=== PATIENT | male | born 1965 | race Caucasian/White ===

== ENCOUNTER 2019-05-24 06:46 | Day surgery (SDC) | payer BC ==
[2019-05-24] MEDS ORDERED: SUCCINYLCHOLINE CHLORIDE 20 MG/ML SOL IV ONE (06:57)
[2019-05-24] MEDS ORDERED: ROCURONIUM BROMIDE 10 MG/ML SOL IV ONE (06:57)
[2019-05-24] MEDS ORDERED: FENTANYL 100MCG/2ML SOL ONE ×3 (06:59→08:22)
[2019-05-24] MEDS ORDERED: PROPOFOL 10 MG/ML 200 MG/20 ML EMU IV ONE (07:02)
[2019-05-24] MEDS ORDERED: LIDOCAINE HCL 1% MPF 30 SOL ONE (07:02)
[2019-05-24] MEDS ORDERED: CEFAZOLIN SODIUM 1 GM PDS ONE ×2 (07:36)
[2019-05-24] MEDS: BUPIVACAINE/EPI 0.5% 10 ML SOL INFIL ONE ×2 (07:52→08:52)
[2019-05-24] MEDS ORDERED: EPHEDRINE SULFATE 50 MG/ML SOL ONE (08:01)
[2019-05-24 10:38] VITALS: RESP 16
[2019-05-24 11:06] VITALS: BP 131/74; PULSE 67; TEMP 97.5; O2SAT 96
== END 2019-05-24 11:25 | disposition home or self-care (01) ==
LOC: SURG 06:46
PROVIDERS: ATTEND Surgery
DX: K40.91 Unilateral inguinal hernia, without obstruction or gangrene, recurrent (principal)
CPT/HCPCS: 82962; J0330; J0690; J3010; A6402; C1781; J2001; J2704; J3490